=== PATIENT | female | born 1990 | race African-American/Black ===

== ENCOUNTER 2017-03-29 03:54 | Emergency (ER) | payer SELFPAY ==
[2017-03-29 06:17] LABS: ALANINE AMINOTRANSFERASE 22 U/L (9-52); ALBUMIN 4.3 g/dL (3.5-5.0); ALKALINE PHOSPHATASE 121 U/L (38-126); ANION GAP 13 (5-19); ASPARTATE AMINO TRANSFERASE 23 U/L (14-36); BILIRUBIN,DIRECT 0.2 mg/dL (0.0-0.4); BILIRUBIN,TOTAL 0.2 mg/dL (0.2-1.3); BLOOD UREA NITROGEN 10 mg/dL (7-20); CALCIUM 10.2 mg/dL (8.4-10.2); CARBON DIOXIDE 27 mmol/L (22-30); CHLORIDE 99 mmol/L (98-107); CREATININE RESULT 0.62 mg/dL (0.52-1.25); GLUCOSE 270 mg/dL (75-110); POTASSIUM 4.8 mmol/L (3.6-5.0); SODIUM 139.3 mmol/L (137-145); TOTAL PROTEIN 8.1 g/dL (6.3-8.2)
[2017-03-29 06:23] LABS: ABSOLUTE BASOPHILS # (AUTO) 0.1 10^3/uL (0.0-0.2); ABSOLUTE EOSINOPHILS # (AUTO) 0.1 10^3/uL (0.0-0.6); ABSOLUTE MONOCYTES (AUTO) 0.5 10^3/uL (0.1-1.4); ABSOLUTE NEUT (AUTO) 4.8 10^3/uL (1.7-8.2); BASOPHILS % (AUTO) 0.7 % (0-2); EOSINOPHILS % (AUTO) 1.4 % (0-6); HEMATOCRIT 40.3 % (36.0-47.0); HEMOGLOBIN 13.4 g/dL (12.0-15.5); HGB HCT DIFFERENCE -0.1; LYMPHOCYTES % (AUTO) 34.8 % (13-45); MEAN CORPUSCULAR HGB CONC 33.1 g/dL (32.0-36.0); MEAN CORPUSCULAR VOLUME 88 fl (80-97); MONOCYTES % (AUTO) 6.3 % (3-13); RED BLOOD COUNT 4.61 10^6/uL (3.72-5.28); RED CELL DISTRIBUTION WIDTH 12.7 % (11.5-14.0); SEGMENTED NEUTROPHILS % (AUTO) 56.8 % (42-78); WHITE BLOOD COUNT 8.5 10^3/uL (4.0-10.5)
--- NOTE | 2017-03-29 07:27 | ER Document Report ---
ED GI Bleed / Rectal Pain - General Chief Complaint: Rectal Bleeding Stated Complaint: BLEEDING FROM RECTUM Time Seen by Provider: 03/29/17 07:26 Mode of Arrival: Ambulatory Information source: Patient Notes: 26-year-old obese female stated that she started having red blood with 5 bowel movements that she had after eating yesterday evening at 6:30 PM. She has a history of irritable bowel and she is not that concerned and it is normal to have that many bowel movements. She has no anal pain or abdominal pain. no History of hemorrhoids. Had -induced hyperglycemia was taking insulin but has not taken any medications for 1 year. She has no insurance and no doctor. She has been suspicious that her glucose is elevated because of how she feels. She did drink a lot of alcohol last night and eats a lot of noodles.. TRAVEL OUTSIDE OF THE [place] IN LAST 30 DAYS: No - Related Data Allergies/Adverse Reactions: No Known Allergies Allergy (Verified 08/07/15 00:23) Past Medical History - General Information source: Patient - Social History Smoking Status: Unknown if Ever Smoked Frequency of alcohol use: None Drug Abuse: None Lives with: Family Family History: Reviewed & Not Pertinent Patient has suicidal ideation: No Patient has homicidal ideation: No Renal/ Medical History: Reports: Hx Pelvic Inflammatory Disease - 16 years old GI Medical History: Reports: Hx Gastroesophageal Reflux Disease - WITH Past Surgical History: Reports: Hx Section, Hx Cholecystectomy - Immunizations Hx Diphtheria, Pertussis, Tetanus Vaccination: No Review of Systems - Review of Systems Constitutional: No symptoms reported EENT: No symptoms reported Cardiovascular: No symptoms reported Respiratory: No symptoms reported Gastrointestinal: See HPI Genitourinary: No symptoms reported Female Genitourinary: No symptoms reported Musculoskeletal: No symptoms reported Skin: No symptoms reported Hematologic/Lymphatic: No symptoms reported Neurological/Psychological: No symptoms reported Physical Exam - Vital signs Vitals: Temp Pulse Resp BP Pulse Ox 97.7 F 97 18 132/87 H 100 03/29/17 03:58 03/29/17 03:58 03/29/17 03:58 03/29/17 03:58 03/29/17 03:58 Interpretation: Normal - General General appearance: Appears well, Alert - HEENT Head: Normocephalic, Atraumatic Eyes: Normal Pupils: PERRL - Respiratory Respiratory status: No respiratory distress Chest status: Nontender Breath sounds: Normal Chest palpation: Normal - Cardiovascular Rhythm: Regular Heart sounds: Normal auscultation Murmur: No - Abdominal Inspection: Normal Distension: No distension Bowel sounds: Normal Tenderness: Nontender Organomegaly: No organomegaly - Rectal Tenderness: Yes Hemorrhoids: Internal Notes: bleeding from anal canal wiht visual exam and anal tissue - Back Back: Normal, Nontender - Extremities General upper extremity: Normal inspection, Nontender, Normal color, Normal ROM , Normal temperature General lower extremity: Normal inspection, Nontender, Normal color, Normal ROM , Normal temperature, Normal weight bearing. No: Barrington's sign - Neurological Neuro grossly intact: Yes Cognition: Normal Orientation: AAOx4 Dennise Coma Scale Eye Opening: Spontaneous Dennise Coma Scale Verbal: Oriented [place] Coma Scale Motor: Obeys Commands Dennise Coma Scale Total: 15 Speech: Normal Motor strength normal: LUE, RUE, LLE, RLE Sensory: Normal - Psychological Associated symptoms: Normal affect, Normal mood - Skin Skin Temperature: Warm Skin Moisture: Dry Skin Color: Normal Course - Re-evaluation Re-evalutation: 03/29/17 08:01 We discussed at length dietary changes to help her metabolize glucose and weight loss. We will start her on some metformin and have her follow-up care in community clinic. The Anusol HC to heal the bleeding anal tissue. Will refer to gastroenterology. Hbg. is normal platelets are 543. - Vital Signs Vital signs: Temp Pulse Resp BP Pulse Ox 97.7 F 93 16 129/82 H 100 03/29/17 08:49 03/29/17 08:49 03/29/17 08:49 03/29/17 08:49 03/29/17 08:49 - Laboratory Result Diagrams: 03/29/17 05:24 03/29/17 05:24 Laboratory results interpreted by me: 03/29/17 03/29/17 05:24 05:24 Plt Count 537 H Glucose 270 H Discharge - Discharge Clinical Impression: Anal bleeding, Hyperglycemia, Hemorrhoids Condition: Good Disposition: HOME, SELF-CARE Instructions: Glucophage ([facility]), Hemorrhoids ([facility]), Hyperglycemia ([facility]), Steroid Medication Additional Instructions: cut way down on carbohydrates, eat meat and vegetables instead, no sweet tea or soda see [facility] for follow up drink 2 liters of water daily to er if worse anusol with steroid suppository to heal the anal tissue that is bleeding Prescriptions: Hydrocortisone Acetate [Anusol-Hc] 25 mg RC BID #24 supp.rect Metformin HCl 500 mg PO BID #60 tablet
[2017-03-29 08:50] VITALS: BP 129/82
== END 2017-03-29 08:47 | disposition home or self-care (01) ==
LOC: ER 03:54
DX: K62.5 Hemorrhage of anus and rectum (principal); R73.9 Hyperglycemia, unspecified; K64.8 Other hemorrhoids
CPT/HCPCS: 36415; 80053; 84703; 85025; 99283

== ENCOUNTER 2017-09-03 16:47 | Emergency (ER) | payer SELFPAY ==
[2017-09-03] MEDS ORDERED: KETOROLAC TROMETHAMINE 60 MG/2 ML SDV IM ONE (17:15)
[2017-09-03] MEDS ORDERED: METOCLOPRAMIDE HCL 10 MG TABLET PO ONE (17:15)
[2017-09-03] MEDS ORDERED: NORMAL SALINE 1000 ML 1,000 ML IV ONE ×2 (18:06→18:57)
--- NOTE | 2017-09-03 18:06 | ER Document Report ---
ED General - General Chief Complaint: Abdominal Pain Stated Complaint: ABDOMINAL PAIN Time Seen by Provider: 09/03/17 17:12 Mode of Arrival: Ambulatory Information source: Patient Notes: 27-year-old female presents with complaints of right flank pain. Patient notes symptoms started a few days ago with urinary frequency burning on urination, patient notes she believes she had a UTI but did not treat for it. Patient notes now she is having nausea vomiting and when the pain hits she feels faint and has passed out TRAVEL OUTSIDE OF THE [place] IN LAST 30 DAYS: No - HPI Onset: Last week Onset/Duration: Persistent, Worse Quality of pain: Sharp Severity: Moderate Pain Level: 2 Associated symptoms: Nausea, Vomiting, Weakness, Other Exacerbated by: Denies Relieved by: Denies Similar symptoms previously: No Recently seen / treated by doctor: No - Related Data Allergies/Adverse Reactions: No Known Allergies Allergy (Verified 09/03/17 16:48) Past Medical History - Social History Smoking Status: Never Smoker Cigarette use (# per day): No Chew tobacco use (# tins/day): No Smoking Education Provided: No Frequency of alcohol use: None Drug Abuse: None Family History: Reviewed & Not Pertinent Patient has suicidal ideation: No Patient has homicidal ideation: No - Past Medical History Cardiac Medical History: Denies: Hx Hypertension, Hx Pulmonary Embolism, Hx Heart Murmur Pulmonary Medical History: Denies: Hx Asthma, Hx Sleep Apnea, Hx Tuberculosis Neurological Medical History: Denies: Hx Cerebrovascular Accident, Hx Seizures Endocrine Medical History: Denies: Hx Hyperthyroidism, Hx Hypothyroidism Renal/ Medical History: Reports: Hx Pelvic Inflammatory Disease - 16 years old. Denies: Hx Kidney Stones, Hx Ovarian Cysts, Hx Peritoneal Dialysis Malignancy Medical History: Denies: Hx Breast Cancer, Hx Cervical Cancer, Hx Ovarian Cancer GI Medical History: Reports: Hx Gastroesophageal Reflux Disease - WITH . Denies: Hx Hiatal Hernia, Hx Ulcer Musculoskeltal Medical History: Denies Hx Fibromyalgia Psychiatric Medical History: Denies: Hx Bipolar Disorder, Hx Depression, Hx Post Traumatic Stress Disorder , Hx Schizophrenia Traumatic Medical History: Denies: Hx Fractures Infectious Medical History: Denies: Hx HIV Past Surgical History: Reports: Hx Section, Hx Cholecystectomy - Immunizations Hx Diphtheria, Pertussis, Tetanus Vaccination: No Review of Systems - Review of Systems Notes: REVIEW OF SYSTEMS: CONSTITUTIONAL : Denies fever, chills, or sweats. Denies recent illness. EENT: Denies eye, ear, throat, or mouth pain or symptoms. Denies nasal or sinus congestion or discharge. Denies throat, tongue, or mouth swelling or difficulty swallowing. CARDIOVASCULAR: Denies chest pain. Denies palpitations or racing or irregular heart beat. Denies ankle edema. RESPIRATORY: Denies cough, cold, or chest congestion. Denies shortness of breath, difficulty breathing, or wheezing. GASTROINTESTINAL: Nausea vomiting right flank pain GENITOURINARY: Difficulty urinating FEMALE GENITOURINARY: Denies vaginal bleeding, heavy or abnormal periods, irregular periods. Denies vaginal discharge or odor. MUSCULOSKELETAL: Denies back or neck pain or stiffness. Denies joint pain or swelling. SKIN: Denies rash, lesions or sores. HEMATOLOGIC : Denies easy bruising or bleeding. LYMPHATIC: Denies swollen, enlarged glands. NEUROLOGICAL: Syncope PSYCHIATRIC: Denies anxiety or stress. Denies depression, suicidal ideation, or homicidal ideation. ALL OTHER SYSTEMS REVIEWED AND NEGATIVE. PHYSICAL EXAMINATION: GENERAL: Well-appearing, well-nourished and in no acute distress. HEAD: Atraumatic, normocephalic. EYES: Pupils equal round and reactive to light, extraocular movements intact, conjunctiva are normal. ENT: Nares patent, oropharynx clear without exudates. Moist mucous membranes. NECK: Normal range of motion, supple without lymphadenopathy LUNGS: Breath sounds clear to auscultation bilaterally and equal. No wheezes rales or rhonchi. HEART: Initially noted to be tachycardic regular rate and rhythm without murmurs ABDOMEN: Soft, right CVA tenderness mild suprapubic pressure Female : deferred Musculoskeletal: Normal range of motion, no pitting or edema. No cyanosis. NEUROLOGICAL: Cranial nerves grossly intact. Normal speech, normal gait. Normal sensory, motor exams PSYCH: Normal mood, normal affect. SKIN: Warm, Dry, normal turgor, no rashes or lesions noted. Dictation was performed using [employer] voice recognition software Physical Exam - Vital signs Vitals: Temp Pulse Resp BP Pulse Ox 99.4 F 113 H 20 162/94 H 97 09/03/17 16:51 09/03/17 16:51 09/03/17 16:51 09/03/17 16:51 09/03/17 16:51 Course - Re-evaluation Re-evalutation: 09/03/17 18:05 Lab work urinalysis pending probable pyelonephritis 09/03/17 18:42 Patient does have pyelonephritis, initially she refused IV, but we were able to convince her 09/03/17 19:26 Lab work notes no significant abnormality except for hyperglycemia, patient she did eat chips in the emergency department, she will be given IV fluids will be given dose of antibiotics here urine culture pending large amount of protein is seen in the urine strict return precautions have been discussed with her After performing a Medical Screening Examination, I estimate there is LOW risk for ACUTE APPENDICITIS, BOWEL OBSTRUCTION, ACUTE CHOLECYSTITIS, PERFORATED DIVERTICULITIS, INCARCERATED HERNIA, PANCREATITIS, PELVIC INFLAMMATORY DISEASE, PERFORATED ULCER, ECTOPIC , or TUBO-OVARIAN ABSCESS, thus I consider the discharge disposition reasonable. Also, there is no evidence or peritonitis , sepsis, or toxicity. I have reevaluated this patient multiple times and no significant life threatening changes are noted. The patient and I have discussed the diagnosis and risks, and we agree with discharging home with close follow-up with the understanding that symptoms and presentations can change. We also discussed returning to the Emergency Department immediately if new or worsening symptoms occur. We have discussed the symptoms which are most concerning (e.g., bloody stool, fever, changing or worsening pain, vomiting) that necessitate immediate return. - Vital Signs Vital signs: Temp Pulse Resp BP Pulse Ox 99.4 F 113 H 20 162/94 H 97 09/03/17 16:51 09/03/17 16:51 09/03/17 16:51 09/03/17 16:51 09/03/17 16:51 - Laboratory Result Diagrams: 09/03/17 18:00 09/03/17 18:00 Laboratory results interpreted by me: 09/03/17 09/03/17 09/03/17 18:00 18:00 18:00 WBC 14.2 H Absolute Neutrophils 10.1 H Sodium 136.3 L Chloride 95 L Glucose 321 H POC Glucose Calcium 11.1 H Direct Bilirubin 0.5 H Total Protein 8.8 H Urine Protein >=500 H Urine Glucose (UA) >=500 H Urine Ketones TRACE H Urine Blood MODERATE H Ur Leukocyte Esterase LARGE H 09/03/17 18:50 WBC Absolute Neutrophils Sodium Chloride Glucose POC Glucose 377 H Calcium Direct Bilirubin Total Protein Urine Protein Urine Glucose (UA) Urine Ketones Urine Blood Ur Leukocyte Esterase Discharge - Discharge Clinical Impression: Hyperglycemia, Pyelonephritis Condition: Stable Disposition: HOME, SELF-CARE Instructions: Pyelonephritis ([facility]) Additional Instructions: Follow up with your physician tomorrow for further care or return to the ED IMMEDIATELY if symptoms worsen or new concerns occur. If you cannot afford to follow up with your primary care physician a list of low cost clinics have been provided at the end of your discharge papers as well. Prescriptions: Ciprofloxacin HCl [Cipro 500 mg Tablet] 500 mg PO BID #20 tablet Hydrocodone/Acetaminophen [[place] 5-325 mg Tablet] 1 tab PO Q6 #10 tablet Metoclopramide HCl [Reglan 10 mg Tablet] 1 - 2 tab PO Q6 #25 tablet
[2017-09-03 18:32] LABS: ABSOLUTE BASOPHILS # (AUTO) 0.2 10^3/uL (0.0-0.2); ABSOLUTE LYMPHOCYTES (AUTO) 3.2 10^3/uL (0.5-4.7); ABSOLUTE MONOCYTES (AUTO) 0.7 10^3/uL (0.1-1.4); ABSOLUTE NEUT (AUTO) 10.1 10^3/uL (1.7-8.2); BASOPHILS % (AUTO) 1.2 % (0-2); EOSINOPHILS % (AUTO) 0.3 % (0-6); HEMATOCRIT 44.1 % (36.0-47.0); HEMOGLOBIN 14.7 g/dL (12.0-15.5); LYMPHOCYTES % (AUTO) 22.3 % (13-45); MEAN CORPUSCULAR HEMOGLOBIN 29.1 pg (27.0-33.4); MEAN CORPUSCULAR HGB CONC 33.4 g/dL (32.0-36.0); MEAN CORPUSCULAR VOLUME 87 fl (80-97); MONOCYTES % (AUTO) 5.2 % (3-13); PLATELET COUNT 450 10^3/uL (150-450); RED BLOOD COUNT 5.06 10^6/uL (3.72-5.28); RED CELL DISTRIBUTION WIDTH 13.2 % (11.5-14.0); TOTAL CELLS COUNTED % (AUTO) 100 %; WHITE BLOOD COUNT 14.2 10^3/uL (4.0-10.5)
[2017-09-03 18:39] LABS: ALBUMIN 4.7 g/dL (3.5-5.0); ANION GAP 17 (5-19); BILIRUBIN,DIRECT 0.5 mg/dL (0.0-0.4); BILIRUBIN,TOTAL 0.7 mg/dL (0.2-1.3); BLOOD UREA NITROGEN 7 mg/dL (7-20); CALCIUM 11.1 mg/dL (8.4-10.2); CARBON DIOXIDE 24 mmol/L (22-30); CHLORIDE 95 mmol/L (98-107); GLUCOSE 321 mg/dL (75-110); LIPASE 79.8 U/L (23-300); SODIUM 136.3 mmol/L (137-145); TOTAL PROTEIN 8.8 g/dL (6.3-8.2)
[2017-09-03 18:40] LABS: APPEARANCE,URINE CLOUDY; BILIRUBIN,URINE NEGATIVE (NEGATIVE); COLOR,URINE YELLOW; GLUCOSE, URINE >=500 mg/dL (NEGATIVE); KETONES,URINE TRACE mg/dL (NEGATIVE); LEUKOCYTE ESTERASE,URINE LARGE (NEGATIVE); NITRITE,URINE NEGATIVE (NEGATIVE); PROTEIN,URINE >=500 mg/dL (NEGATIVE); URINE SPECIFIC GRAVITY 1.012; UROBILINOGEN,URINE NEGATIVE mg/dL (<2.0)
[2017-09-03] MEDS ORDERED: CIPROFLOXACIN HCL 500 MG TABLET PO ONE (18:43)
[2017-09-03 19:09] LABS: ASPARTATE AMINO TRANSFERASE 33 U/L (14-36)
[2017-09-03 19:10] LABS: ALANINE AMINOTRANSFERASE 13 U/L (9-52); ALKALINE PHOSPHATASE 111 U/L (38-126)
[2017-09-03 19:59] VITALS: BP 131/86
== END 2017-09-03 19:59 | disposition home or self-care (01) ==
LOC: ER 16:47
DX: N12 Tubulo-interstitial nephritis, not specified as acute or chronic (principal); R73.9 Hyperglycemia, unspecified; R11.2 Nausea with vomiting, unspecified; R55 Syncope and collapse; R53.1 Weakness
CPT/HCPCS: 99284; 96372; 96360; 36415; 82962; 83690; 85025; 81025; 80053; 81001; J1885; J7030

== ENCOUNTER 2017-11-08 09:53 | Emergency (ER) | payer SELFPAY ==
--- NOTE | 2017-11-08 14:16 | ER Document Report ---
ED Flu Like - General Chief Complaint: Flu Symptoms Stated Complaint: FLU SYMPTOMS Time Seen by Provider: 11/08/17 13:45 Mode of Arrival: Ambulatory Information source: Patient Notes: 27-year-old female presents to ED for complaint of fever chills cough body aches for the past 3 days. 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 She states she has been taken Robitussin yesterday and today. She states she does not have a thermometer at home and has not taken her temperature today. Patient is alert and oriented respirations regular and unlabored speaking in full sentences and walks with a even steady gait. He is afebrile in the emergency room. TRAVEL OUTSIDE OF THE [place] IN LAST 30 DAYS: No - HPI Onset: Other - 3 days Timing/Duration: Intermittent Quality of pain: Achy Severity: Moderate Pain Level: 3 CO exposure: No Associated symptoms: Body/muscle aches, Chills, Nonproductive cough, Fever, Rhinnorhea, Sinus pain/drainage, Shortness of breath Similar symptoms previously: Yes Recently seen / treated by doctor: No - Related Data Allergies/Adverse Reactions: No Known Allergies Allergy (Verified 09/03/17 16:48) Past Medical History - General Information source: Patient - Social History Smoking Status: Never Smoker Cigarette use (# per day): No Chew tobacco use (# tins/day): No Smoking Education Provided: No Frequency of alcohol use: None Drug Abuse: None Occupation: long term Lives with: Family Family History: Reviewed & Not Pertinent Patient has suicidal ideation: No Patient has homicidal ideation: No - Past Medical History Cardiac Medical History: Reports: None Pulmonary Medical History: Reports: None EENT Medical History: Reports: None Neurological Medical History: Reports: None Endocrine Medical History: Reports: Hx Diabetes Mellitus Type 2 Renal/ Medical History: Reports: Hx Pelvic Inflammatory Disease - 16 years old Malignancy Medical History: Reports: None GI Medical History: Reports: Hx Gastroesophageal Reflux Disease - WITH Musculoskeletal Medical History: Reports Hx Musculoskeletal Trauma Skin Medical History: Reports None Psychiatric Medical History: Reports: None Traumatic Medical History: Reports: None Infectious Medical History: Reports: None. Denies: Hx HIV Past Surgical History: Reports: Hx Section, Hx Cholecystectomy - Immunizations Hx Diphtheria, Pertussis, Tetanus Vaccination: No Review of Systems - Review of Systems Constitutional: Chills, Fever, Recent illness EENT: Nose congestion, Nose discharge, Sinus discharge Cardiovascular: No symptoms reported Respiratory: Cough Gastrointestinal: No symptoms reported Genitourinary: No symptoms reported Female Genitourinary: No symptoms reported Musculoskeletal: Muscle pain, Muscle stiffness Skin: No symptoms reported Hematologic/Lymphatic: No symptoms reported Neurological/Psychological: No symptoms reported -: Yes All other systems reviewed and negative Physical Exam - Vital signs Vitals: Temp Pulse Resp BP Pulse Ox 98.7 F 113 H 14 134/83 H 99 11/08/17 10:23 11/08/17 10:23 11/08/17 10:23 11/08/17 10:23 11/08/17 10:23 Interpretation: Normal - General General appearance: Appears well, Alert - HEENT Head: Normocephalic, Atraumatic Eyes: Normal Pupils: PERRL Ears: Normal External canal: Normal Tympanic membrane: Normal Sinus: Normal Nasal: Purulent discharge, Swelling Mouth/Lips: Normal Mucous membranes: Normal Pharynx: Post nasal drainage Neck: Normal - Respiratory Respiratory status: No respiratory distress Chest status: Nontender Breath sounds: Normal Chest palpation: Normal - Cardiovascular Rhythm: Regular Heart sounds: Normal auscultation Murmur: No - Abdominal Inspection: Normal Distension: No distension Bowel sounds: Normal Tenderness: Nontender Organomegaly: No organomegaly - Back Back: Normal, Nontender - Extremities General upper extremity: Normal inspection, Nontender, Normal color, Normal ROM , Normal temperature General lower extremity: Normal inspection, Nontender, Normal color, Normal ROM , Normal temperature, Normal weight bearing. No: Barrington's sign - Neurological Neuro grossly intact: Yes Cognition: Normal Orientation: AAOx4 [place] Coma Scale Eye Opening: Spontaneous Dennise Coma Scale Verbal: Oriented Dennise Coma Scale Motor: Obeys Commands Romance Coma Scale Total: 15 Speech: Normal Motor strength normal: LUE, RUE, LLE, RLE Sensory: Normal - Psychological Associated symptoms: Normal affect, Normal mood - Skin Skin Temperature: Warm Skin Moisture: Dry Skin Color: Normal Course - Re-evaluation Re-evalutation: 11/08/17 15:58 She was educated on Tylenol ibuprofen and cold congestion symptoms relief. Patient to follow-up with her primary doctor for her cough and cold symptoms. After performing a Medical Screening Examination, I estimate there is LOW risk for ACUTE CORONARY SYNDROME, RESPIRATORY FAILURE, SEPSIS OR MENINGITIS, thus I consider the discharge disposition reasonable. I have reevaluated this patient multiple times and no significant life threatening changes are noted. The patient and I have discussed the diagnosis and risks, and we agree with discharging home with close follow-up. We also discussed returning to the Emergency Department immediately if new or worsening symptoms occur. We have discussed the symptoms which are most concerning (e.g., changing or worsening pain, trouble swallowing or breathing, neck stiffness, fever) that necessitate immediate return. - Vital Signs Vital signs: Temp Pulse Resp BP Pulse Ox 98.1 F 112 H 18 143/87 H 100 11/08/17 14:25 11/08/17 14:25 11/08/17 14:25 11/08/17 14:25 11/08/17 14:25 Discharge - Discharge Clinical Impression: URI (upper respiratory infection) Qualifiers: URI type: unspecified URI Qualified Code(s): J06.9 - Acute upper respiratory infection, unspecified Condition: Stable Disposition: HOME, SELF-CARE Instructions: Family Physicians / Practices Additional Instructions: UPPER RESPIRATORY ILLNESS: You have a viral infection of the respiratory passages -- a "cold." This common infection causes nasal congestion, drainage, and often sore throat and cough. It is highly contagious. The disease usually lasts about 10 to 14 days. There is no "cure" for the viral infection -- it must run its course. If there is a complication, such as bacterial infection in the nose, sinuses, middle ear, or bronchial tubes, antibiotics may be required. The antibiotics won't affect the virus. Drink plenty of fluids. A humidifier may help. An expectorant medication or decongestant may make you more comfortable. Use acetaminophen or ibuprofen for fever or aches. See the doctor if fever persists over two days, if there is any significant worsening of your symptoms, or if you simply fail to improve as expected. DECONGESTANT MEDICATION: A decongestant medicine has been prescribed. Often this medicine is combined in the same tablet with an antihistamine or expectorant. This type of medicine is helpful in treating a bad cold or sinus condition, as well as in treatment of the nasal congestion of hay fever. It is not of much benefit for lung infections. Decongestant medicines are related to stimulants. They can cause an increase in blood pressure and heart rate. Persons with heart disease and high blood pressure should not take decongestants without discussing this with the physician. If you develop palpitations, chest pain, headache, or tremors, stop the medicine and consult your physician. COUGH-SUPPRESSANT & EXPECTORANT MEDICATION: You are to use a cough medication as needed for relief of symptoms. This medicine is a combination of an expectorant (to make the mucous thinner and more easily "coughed up") and a cough suppressant (to reduce the frequency of coughing). The cough-suppressant medicine is related to narcotics. You may experience mild nausea and sleepiness. Some patients who are very sensitive to narcotics may have stomach pain from this medicine. Taking the medicine with food reduces these side effects. Do not drive or work with machinery until you know how this medicine affects you. The expectorant should have no side effects. Iodine-containing expectorants (such as organidin) should not be taken by persons with active thyroid disease unless approved by your doctor. Call the doctor if you develop shortness of breath, hives, rash, itching, lightheadedness, or severe nausea and vomiting. USE OF ACETAMINOPHEN (Tylenol): Acetaminophen may be taken for pain relief or fever control. It's much safer than aspirin, offering a wider range of "safe" dosages. It is safe during . Some brand names are Tylenol, Panadol, Datril, Anacin 3, Tempra, and Liquiprin. Acetaminophen can be repeated every four hours. The following are maximum recommended dosages: >89 pounds or adults 650 mg to 900 mg Acetaminophen can be repeated every four hours. Maximum dose not to exceed 4000 mg a day. Viral Syndrome The physician has diagnosed a viral infection. Viruses not only cause "colds," but can cause many different symptoms including generalized aching, fever, headache, cough, diarrhea, nausea, vomiting, and fatigue. The treatment, for the most part, is simply relief of symptoms. This means that antibiotics are usually not given. Rest, fluids, pain medications and, occasionally, medication for the specific symptoms that are most bothersome will be prescribed. Use good handwashing to avoid passing the virus to others. Shared toys should be cleaned with disinfectant. Clean the toilets, sinks, and counter surfaces in bathrooms. Launder clothing in hot water. Contact the physician if you develop any new or unusual symptoms such as severe headache, stiff neck, high fever, chest pain, productive cough, or shortness of breath. You should be rechecked if you don't see marked improvement within seven to 10 days. Ibuprofen Ibuprofen is an excellent, safe drug for pain control. In addition, it has potent antiinflammatory effects which are beneficial, especially in the treatment of injuries, arthritis, or tendonitis. It's best to take ibuprofen with food. Persons with ulcer disease or allergy to aspirin should notify their physician of this before taking ibuprofen. Take the medication exactly as prescribed. Don't take additional doses unless instructed to do so by your doctor. If you develop wheezing, shortness of breath, hives, faintness, stomach pain, vomiting, or dark black stools, return for re-evaluation at once. FOLLOW-UP CARE: If you have been referred to a physician for follow-up care, call the physician s office for an appointment as you were instructed or within the next two days. If you experience worsening or a significant change in your symptoms, notify the physician immediately or return to the Emergency Department at any time for re-evaluation. Forms: Return to Work
[2017-11-08 14:40] VITALS: BP 143/87
== END 2017-11-08 14:30 | disposition home or self-care (01) ==
LOC: ER 09:53
DX: J06.9 Acute upper respiratory infection, unspecified (principal); R50.9 Fever, unspecified; R05 Cough; M79.1 Myalgia; J34.89 Other specified disorders of nose and nasal sinuses; R09.81 Nasal congestion; R09.89 Other specified symptoms and signs involving the circulatory and respiratory systems; R06.02 Shortness of breath; E11.9 Type 2 diabetes mellitus without complications
CPT/HCPCS: 99283

== ENCOUNTER 2019-08-11 18:41 | Emergency (ER) | payer SELFPAY ==
[2019-08-11 19:34] VITALS: BP 137/81
[2019-08-11] MEDS ORDERED: ASPIRIN 81 MG TABLET, CHEWABLE PO ONE (20:48)
[2019-08-11] MEDS ORDERED: ONDANSETRON HCL INJ/PF 4 MG/2 ML SDV IV ONE (20:48)
--- NOTE | 2019-08-11 20:50 | ER Document Report ---
ED General - General Chief Complaint: Shortness Of Breath Stated Complaint: SHORTNESS OF BREATH Time Seen by Provider: 08/11/19 20:45 Mode of Arrival: Ambulatory Information source: Patient Notes: Patient presents complaining of chest tightness and generalized body aches since 8 AM today. Patient states that when she moves or takes a deep breath she has chest and body pain. Patient denies any cough or cold symptoms. Patient denies any fever. Patient does report nausea without vomiting or diarrhea. Patient states she has had some urinary frequency and dysuria. TRAVEL OUTSIDE OF THE [place] IN LAST 30 DAYS: No - HPI Onset: This morning Onset/Duration: Persistent Quality of pain: Achy Pain Level: 3 Associated symptoms: Body/muscle aches, Chest pain, Nausea. 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 Denies: Hx Kidney Stones, Hx Peritoneal Dialysis GI Medical History: Reports: Hx Gastroesophageal Reflux Disease - WITH . Denies: Hx Hiatal Hernia, Hx Ulcer Musculoskeletal Medical History: Reports Hx Musculoskeletal Trauma Psychiatric Medical History: Denies: Hx Bipolar Disorder, Hx Depression, Hx Schizophrenia Infectious Medical History: Denies: Hx HIV Past Surgical History: Reports: Hx Section, Hx Cholecystectomy - Immunizations Hx Diphtheria, Pertussis, Tetanus Vaccination: No Review of Systems - Review of Systems Constitutional: No symptoms reported. denies: Fever EENT: No symptoms reported Cardiovascular: Chest pain Respiratory: No symptoms reported. denies: Cough, Short of breath Gastrointestinal: Abdominal pain, Nausea. denies: Diarrhea, Vomiting Genitourinary: Dysuria, Frequency. denies: Flank pain Female Genitourinary: No symptoms reported Musculoskeletal: No symptoms reported Skin: No symptoms reported Hematologic/Lymphatic: No symptoms reported Neurological/Psychological: No symptoms reported Physical Exam - Vital signs Vitals: Temp 99 F 08/11/19 18:42 - General General appearance: Appears well, Alert In distress: None - HEENT Head: Normocephalic, Atraumatic Eyes: Normal Conjunctiva: Normal Nasal: Normal Mouth/Lips: Normal Neck: Normal, Supple. No: Lymphadenopathy - Respiratory Respiratory status: No respiratory distress Chest status: Tender, Pain with deep breathing Breath sounds: Normal Chest palpation: Tender. No: Ecchymosis - Cardiovascular Rhythm: Regular Heart sounds: S1 appreciated, S2 appreciated Murmur: No - Abdominal Inspection: Morbidly Obese Distension: No distension Bowel sounds: Normal Tenderness: Nontender Organomegaly: No organomegaly - Back Back: Normal, Nontender - Extremities General upper extremity: Normal inspection, Normal ROM General lower extremity: Normal inspection, Normal ROM - Neurological Neuro grossly intact: Yes Cognition: Normal Dennise Coma Scale Eye Opening: Spontaneous Dennise Coma Scale Verbal: Oriented Dennise Coma Scale Motor: Obeys Commands Dennise Coma Scale Total: 15 - Psychological Associated symptoms: Normal affect, Normal mood - Skin Skin Temperature: Warm Skin Moisture: Dry Skin Color: Normal Course - Re-evaluation Re-evalutation: 08/11/19 21:45 Patient states that she has to go home to stay with her children as they are there by themselves. Patient states that she cannot stay to have any additional testing performed. Patient advised of urinalysis results and chest x-ray report. The patient has decided not to proceed with further recommended testing or treatment to determine the cause of her symptoms. The risk and alternatives to the recommendation were discussed the patient voiced understanding. The patient appears clinically to have the capacity to make this decision. The patient was instructed that they could return to the ER at any time to complete the testing or treatment. - Vital Signs Vital signs: Temp Pulse Resp BP Pulse Ox 99 F 111 H 19 137/81 H 100 08/11/19 19:33 08/11/19 19:33 08/11/19 19:33 08/11/19 19:33 08/11/19 19:33 - Laboratory Laboratory results interpreted by me: 08/11/19 21:02 Urine Glucose (UA) >=500 H Urine Ketones TRACE H Ur Leukocyte Esterase LARGE H - Diagnostic Test Radiology reviewed: Reports reviewed Discharge - Discharge Clinical Impression: Body aches Chest pain Qualifiers: Chest pain type: unspecified Qualified Code(s): R07.9 - Chest pain, unspecified UTI (urinary tract infection) Qualifiers: Urinary tract infection type: site unspecified Hematuria presence: without hematuria Qualified Code(s): N39.0 - Urinary tract infection, site not specified Disposition: AGAINST MEDICAL ADVICE Additional Instructions: Return immediately if you would like to continue your diagnostic evaluation. Return for any worsening of symptoms, fever, vomiting, or any new concerning symptoms Follow-up with your primary doctor for recheck Prescriptions: Cephalexin Monohydrate [Keflex 500 mg Capsule] 500 mg PO Q6H 7 Days #28 capsule Forms: Return to Work
[2019-08-11 21:17] LABS: APPEARANCE,URINE SLIGHTLY-CLOUDY; BILIRUBIN,URINE NEGATIVE (NEGATIVE); COLOR,URINE YELLOW; GLUCOSE, URINE >=500 mg/dL (NEGATIVE); KETONES,URINE TRACE mg/dL (NEGATIVE); LEUKOCYTE ESTERASE,URINE LARGE (NEGATIVE); NITRITE,URINE NEGATIVE (NEGATIVE); PROTEIN,URINE NEGATIVE (NEGATIVE); URINE SPECIFIC GRAVITY 1.021; UROBILINOGEN,URINE NEGATIVE mg/dL (<2.0)
--- NOTE | 2019-08-11 21:21 | RADIOLOGY REPORT (SQ) ---
EXAM DESCRIPTION: XR CHEST 1 VIEW COMPLETED DATE/TME: 08/11/2019 20:48 CLINICAL HISTORY: 29 years, Female, cp COMPARISON: None. NUMBER OF VIEWS: One TECHNIQUE: Single frontal view of the chest was obtained portably LIMITATIONS: None. FINDINGS: Cardiac and mediastinal contours are normal. Lungs are clear. No pleural effusion or pneumothorax. IMPRESSION: No acute disease. copyright 2010 [employer]- All Rights Reserved
--- NOTE | 2019-08-11 21:32 | EKG REPORT ---
SEVERITY:- ABNORMAL ECG - SINUS RHYTHM PROBABLE LEFT ATRIAL ABNORMALITY PROBABLE LEFT VENTRICULAR HYPERTROPHY : Confirmed by: Nikunj Moeller MD 11-Aug-2019 21:31:58
[2019-08-11] MEDS ORDERED: CEPHALEXIN 500 MG CAPSULE PO ONE (21:45)
== END 2019-08-11 22:20 | disposition left against medical advice (07) ==
LOC: ER 18:41
DX: R07.89 Other chest pain (principal); R07.1 Chest pain on breathing; N39.0 Urinary tract infection, site not specified; M79.10 Myalgia, unspecified site; R35.0 Frequency of micturition; R30.0 Dysuria; R11.0 Nausea; R10.9 Unspecified abdominal pain; F17.200 Nicotine dependence, unspecified, uncomplicated; E11.9 Type 2 diabetes mellitus without complications; Z53.29 Procedure and treatment not carried out because of patient's decision for other reasons
CPT/HCPCS: 71045; 81001; 87086; 87088; 87186; 93005; 93010; 99284

== ENCOUNTER 2019-08-29 07:33 | Emergency (ER) | payer SELFPAY ==
--- NOTE | 2019-08-29 08:24 | ER Document Report ---
ED General - General Chief Complaint: Pain With Urination Stated Complaint: URINARY PAIN Time Seen by Provider: 08/29/19 08:01 Notes: 29-year-old female presenting today for continued suprapubic pain and dysuria. She is seen about 2 weeks ago and prescribed an antibiotic but was eventually told not to take it due to the results of her urine culture she states that she was diagnosed with MRSA she was prescribed another antibiotic. States that her dysuria and suprapubic pain did improve slightly but she continues to have the pain. Reports no hematuria, but she does report white clumpy vaginal discharge and itching. She has tried monistat for the yeast concern. She also notes that she has a rash under her stomach that is worsening and spread across her entire lower abdomen and also underneath her breasts in which she has been using an otc cream called Endit!. Reports headache. No fevers, chills, shortness of breath, chest pain, or upper abdominal pain. No CVA tenderness. Last menstrual period was 1 week ago. TRAVEL OUTSIDE OF THE [place] IN LAST 30 DAYS: No - Related Data Allergies/Adverse Reactions: No Known Allergies Allergy (Verified 09/03/17 16:48) Past Medical History - Social History Smoking Status: Former Smoker Frequency of alcohol use: None Family History: Reviewed & Not Pertinent - Past Medical History Cardiac Medical History: Reports: None Denies: Hx Hypertension Pulmonary Medical History: Reports: None Denies: Hx Asthma, Hx Tuberculosis EENT Medical History: Reports: None Neurological Medical History: Denies: Hx Seizures Endocrine Medical History: Reports: Hx Diabetes Mellitus Type 2 Renal/ Medical History: Reports: Hx Pelvic Inflammatory Disease - 16 years old. Denies: Hx Kidney Stones, Hx Peritoneal Dialysis GI Medical History: Reports: Hx Gastroesophageal Reflux Disease - WITH , Other - gallstones. Denies: Hx Hiatal Hernia, Hx Ulcer Musculoskeletal Medical History: Reports Hx Musculoskeletal Trauma Psychiatric Medical History: Denies: Hx Bipolar Disorder, Hx Depression, Hx Schizophrenia Infectious Medical History: Denies: Hx HIV Past Surgical History: Reports: Hx Section, Hx Cholecystectomy, Hx Tubal Ligation - Immunizations Hx Diphtheria, Pertussis, Tetanus Vaccination: No Review of Systems - Review of Systems Constitutional: No symptoms reported EENT: No symptoms reported Cardiovascular: No symptoms reported Respiratory: No symptoms reported Gastrointestinal: See HPI Genitourinary: See HPI Female Genitourinary: See HPI Musculoskeletal: Other - low back pain Skin: See HPI Hematologic/Lymphatic: No symptoms reported Physical Exam - Vital signs Vitals: Temp Pulse Resp BP Pulse Ox 98.3 F 97 18 141/83 H 99 08/29/19 07:39 08/29/19 07:39 08/29/19 07:39 08/29/19 07:39 08/29/19 07:39 Interpretation: Hypertensive - Notes Notes: Adult General: GENERAL: Alert, interacts well. No acute distress HEAD: Normocephalic, atraumatic EYES: Pupils equal, round and reactive to light. Extraocular movements intact. ENT: Oral mucosa moist, tongue midline. Oropharynx unremarkable. Airway patent. Nares patent. NECK: Full range of motion. Supple. Trachea midline. No lymphadenopathy. LUNGS: Clear to auscultation bilaterally, no wheezes, rales, or rhonchi. No respiratory distress. Nontender chest wall. HEART: Regular rate and rhythm. No murmurs, rubs or gallops. ABDOMEN: Soft, nontender. Nondistended. Bowel sounds present in all 4 quadrants. GENITOURINARY: White discharge, no cervical motion tenderness. EXTREMITIES: Moves all 4 extremities spontaneously. BACK: No cervical, thoracic, lumbar midline tenderness. Moves all extremities with full range of motion. NEUROLOGICAL: Alert and oriented x3. Normal speech. Strength 5/ 5 in all extremities. PSYCH: Normal affect, normal mood. SKIN: Warm, dry, normal turgor. discoloration under pannus extending entire length of abdomen, with whitish discharge and odor, same rash under breast Course - Re-evaluation Re-evalutation: 08/29/19 10:27 Pelvic exam was performed for patient. July RN chaperoned. Physical exam showed white, chunky discharge. No vesicles or rashes or lesions noted. No cervical motion tenderness. Did note some discomfort but no pain. Does tell me at this time that she has a history of herpes. He has had intercourse with an uncircumcised partner recently. When she initially noticed the symptoms of the vaginal discharge she tried Monistat but that did not alleviate symptoms. 08/29/19 20:30 Wet mount showed signs of bacterial vaginosis. Will treat patient for this. 08/29/19 20:31 Patient continues to have suprapubic pain and pain with urination. Previous urinalysis showed MRSA. Urinalysis shows continued leuko-cyte esterase on repeat examination. We will go ahead and continue to treat for UTI. Bactrim showed improvement in her symptoms initially, will restart patient on Bactrim for an extended period of time. Wet mount also showed signs of bacterial vaginosis. Patient with Flagyl. Both of these can be contributing to her alvares prapubic pain. Patients rash is also consistent with a fungal etiology. Will prescribe patient nystatin. Instructed patient to keep the area clean and dry. The urinalysis was cultured. The skin lesion was also cultured. Patient should be notified of results when they do return. Patient instructed to take medication as prescribed. Return precautions to the ER include worsening symptoms, or development of new symptoms. Patient is in agreement to the plan and verbalizes understanding of instructions. - Vital Signs Vital signs: Temp Pulse Resp BP Pulse Ox 98.3 F 94 18 133/89 H 99 08/29/19 11:37 08/29/19 11:37 08/29/19 11:37 08/29/19 11:37 08/29/19 11:37 - Laboratory Laboratory results interpreted by me: 08/29/19 08:25 Ur Leukocyte Esterase LARGE H Discharge - Discharge Clinical Impression: Urinary tract bacterial infections, Bacterial vaginosis, Candidiasis Condition: Stable Disposition: HOME, SELF-CARE Instructions: Metronidazole ([facility]), Nystatin ([facility]), Trimethoprim-Sulfa ([facility]), Urinary Tract Infection ([facility]), Vaginosis, Bacterial ([facility]) Additional Instructions: you are being treated for UTI symptoms, bacterial vaginitis, and a fungal skin infection. Recommend follow-up with a PCM as soon as possible. You may return to the ED if you develop worsening symptoms or development of new symptoms. Please take medications as prescribed. Please keep skin clean and dry. We are still pending results of the skin culture. You should hear back in approximately 3 days of these results and any new or additional instructions if needed. Prescriptions: Sulfamethoxazole/Trimethoprim [Bactrim Ds Tablet] 1 each PO BID #20 tablet Metronidazole [Flagyl 500 mg Tablet] 500 mg PO BID #14 tablet Nystatin [Mycostatin Ointment 15 gm] 1 applic TP BID #1 tube Phenazopyridine HCl [Pyridium 200 mg Tablet] 200 mg PO TID #15 tablet Forms: Return to Work
[2019-08-29 08:47] LABS: APPEARANCE,URINE CLOUDY; BILIRUBIN,URINE NEGATIVE (NEGATIVE); COLOR,URINE YELLOW; GLUCOSE, URINE NEGATIVE (NEGATIVE); KETONES,URINE NEGATIVE (NEGATIVE); LEUKOCYTE ESTERASE,URINE LARGE (NEGATIVE); NITRITE,URINE NEGATIVE (NEGATIVE); PROTEIN,URINE NEGATIVE (NEGATIVE); URINE SPECIFIC GRAVITY 1.018; UROBILINOGEN,URINE NEGATIVE mg/dL (<2.0)
[2019-08-29 10:36] LABS: BACTERIA (WET MOUNT) 4+ BACTERIA SEEN; EPITHELIALS (WET MOUNT) 3+ EPITHELIALS SEEN; T.VAGINALIS (WET MOUNT) NO TRICHOMONAS SEEN; WBCS (WET MOUNT) 2+ WBCS SEEN; YEAST (WET MOUNT) NO YEAST SEEN
[2019-08-29 11:38] VITALS: BP 133/89
[2019-08-29 12:00] LABS: CHLAM PCR NOT DETECTED (NOT DETECT)
== END 2019-08-29 11:43 | disposition home or self-care (01) ==
LOC: ER 07:33
DX: N76.0 Acute vaginitis (principal); N39.0 Urinary tract infection, site not specified; B96.89 Other specified bacterial agents as the cause of diseases classified elsewhere; R51 Headache; B37.2 Candidiasis of skin and nail; M54.5 Low back pain; E11.9 Type 2 diabetes mellitus without complications; Z87.891 Personal history of nicotine dependence
CPT/HCPCS: 81001; 81025; 87070; 87075; 87086; 87088; 87101; 87186; 87205; 87210; 87491; 87591; 99283

== ENCOUNTER 2019-11-04 07:58 | Emergency (ER) | payer SELFPAY ==
--- NOTE | 2019-11-04 09:21 | ER Document Report ---
ED General - General Chief Complaint: Vaginal Pain Stated Complaint: ABDOMINAL PAIN Notes: 29-year-old female with past medical history of HSV, chronic UTI, MRSA, chronic yeast infection presenting with continued pain with urination, left-sided flank pain and white discharge. She states she also has a history of HSV and MRSA. States that she when she was seen back in August she took antibiotics and her symptoms of her pain with urination and the yeast cleared but shortly after discontinuing the medication her pain with urination and vaginal discharge returned. States she has had occasional boils develop. States that this is not abnormal for her. She denies having intercourse due to the pain. She does not have health insurance at this time. She denies any fevers, chills, shortness of breath chest pain. She states she is occasionally nauseous but that is mostly in the morning and it resolves on its own. Is not currently nauseous. Also notes left sided flank pain. TRAVEL OUTSIDE OF THE [place] IN LAST 30 DAYS: No - Related Data Allergies/Adverse Reactions: No Known Allergies Allergy (Verified 09/03/17 16:48) Past Medical History - Social History Smoking Status: Never Smoker Frequency of alcohol use: None Drug Abuse: None Family History: Reviewed & Not Pertinent - Past Medical History Cardiac Medical History: Denies: Hx Hypertension Pulmonary Medical History: Denies: Hx Asthma, Hx Tuberculosis Neurological Medical History: Denies: Hx Seizures Endocrine Medical History: Reports: Hx Diabetes Mellitus Type 2 Renal/ Medical History: Reports: Hx Pelvic Inflammatory Disease - 16 years old. Denies: Hx Kidney Stones, Hx Peritoneal Dialysis GI Medical History: Reports: Hx Gastroesophageal Reflux Disease - WITH . Denies: Hx Hiatal Hernia, Hx Ulcer Musculoskeletal Medical History: Reports Hx Musculoskeletal Trauma Psychiatric Medical History: Denies: Hx Bipolar Disorder, Hx Depression, Hx Schizophrenia Infectious Medical History: Denies: Hx HIV Past Surgical History: Reports: Hx Section, Hx Cholecystectomy, Hx Tubal Ligation - Immunizations Hx Diphtheria, Pertussis, Tetanus Vaccination: No Review of Systems - Review of Systems Constitutional: No symptoms reported EENT: No symptoms reported Cardiovascular: No symptoms reported Respiratory: No symptoms reported Gastrointestinal: No symptoms reported Genitourinary: See HPI Female Genitourinary: See HPI Musculoskeletal: See HPI Skin: No symptoms reported Hematologic/Lymphatic: No symptoms reported Neurological/Psychological: No symptoms reported Physical Exam - Vital signs Vitals: Temp Pulse Resp BP Pulse Ox 98.7 F 97 16 136/83 H 99 11/04/19 08:10 11/04/19 08:10 11/04/19 08:10 11/04/19 08:10 11/04/19 08:10 Interpretation: Normal - Notes Notes: Chaperoned by Charlene Sepulveda RN Adult General: GENERAL: Alert, interacts well. No acute distress HEAD: Normocephalic, atraumatic EYES: Pupils equal, round and reactive to light. Extraocular movements intact. ENT: Airway patent. Nares patent. NECK: Full range of motion. Supple. Trachea midline. LUNGS: Clear to auscultation bilaterally, no wheezes, rales, or rhonchi. No respiratory distress. Nontender chest wall. HEART: Regular rate and rhythm. No murmurs, rubs or gallops. ABDOMEN: Soft, suprapubic tenderness. Nondistended. (-) Bearden sign. Bowel sounds present in all 4 quadrants. No rebound, guarding or masses. GENITOURINARY: Swollen vulva with white chunky discharge, (-) chandeliers sign, no open sores or lesions EXTREMITIES: Moves all 4 extremities spontaneously. BACK: (+) CVA tenderness left side. No cervical, thoracic, lumbar midline tenderness. No saddle anesthesia, normal distal neurovascular exam. Moves all extremities with full range of motion. NEUROLOGICAL: Alert and oriented x3. Normal speech. Strength 5/ 5 in all extremities. PSYCH: Normal affect, normal mood. SKIN: Warm, dry, normal turgor. No rashes or lesions noted. Course - Re-evaluation Re-evalutation: 11/04/19 09:[address] scan shows hepatomegaly and no hydronephrosis or stones. Her UTI is positive for leukocyte esterase. Her wet prep is positive for bv and yeast. Her blood sugars are also elevated at this time. I had a lengthy conversation with the patient in regards to the importance of establishing care with a primary care provider for her reoccurring yeast infections and diabetes as I suspect the diabetes is worsening her yeast infec tions. I also discussed she will need follow up with a primary care for her hepatomegaly. I will go ahead and order her a dose of diflucan in the er today and give her 2 additional doses as well as a topical cream to help alleviate her inflammation. I will also treat for BV. I also discussed with the patient her urinalysis results. She states it doesn't feel like a UTI as the pain is all external with urination. The urinalysis results may be due to her yeast/bv/inflammation. I will not prescribe antibiotics at this time, but will go ahead and culture her urine. I informed the patient that the culture results should return in approximately 3 days and if they are positive we can treat her then. I informed her that if she is not notifed by the emergency department that she should call to receive the results. Patient is agreeable to the plan. I will also order her metformin in the interim while she establishes care with a primary care provider. I discussed return precautions to include worsening symptoms or the development of new symptoms. Patient acknowledges and verbalizes understanding of instructions and plan. All questions answered. - Vital Signs Vital signs: Temp Pulse Resp BP Pulse Ox 98.3 F 86 17 138/90 H 98 11/04/19 13:01 11/04/19 13:01 11/04/19 13:01 11/04/19 13:01 11/04/19 13:01 - Laboratory Result Diagrams: 11/04/19 10:15 11/04/19 10:15 Laboratory results interpreted by me: 11/04/19 11/04/19 09:35 10:15 Sodium 132.1 L Glucose 329 H Urine Protein 30 H Urine Glucose (UA) >=500 H Urine Ketones TRACE H Urine Blood SMALL H Ur Leukocyte Esterase LARGE H Urine Ascorbic Acid 40 H Discharge - Discharge Clinical Impression: Bacterial vaginosis, Yeast infection involving the vagina and surrounding area Diabetes mellitus Qualifiers: Diabetes mellitus type: type 2 Diabetes mellitus terminal make up operator insulin use: unspecified terminal make up operator insulin use status Diabetes mellitus complication status: without complication Qualified Code(s): E11.9 - Type 2 diabetes mellitus without complications Condition: Stable Disposition: HOME, SELF-CARE Instructions: Diabetes ([facility]), Vaginal Yeast Infection ([facility]), Vaginosis, Bacterial ([facility]) Additional Instructions: You are being treated for bacterial vaginosis. Please take medication as prescribed. You also being treated for a yeast infection. You have been given a dose of Diflucan in the emergency department today. Take additional doses as prescribed. Please establish care with your primary care provider to better control your blood sugars. Your blood sugars have also been elevated in the emergency department. I will start you on metformin today. Please follow-up with your primary care provider for better control of your diabetes. As discussed we also cultured your urinalysis. I am pending those results before we start treatment as I believe your symptoms are more related to your yeast and bacterial vaginosis. These results will take approximately 3 days to come back. If you do not hear back you may call the emergency department for the results. Please return to the emergency department for worsening symptoms or development of new symptoms. Prescriptions: Fluconazole [Diflucan] 150 mg PO ASDIR #2 tablet Metronidazole [Flagyl 500 mg Tablet] 500 mg PO BID 7 Days #14 tablet Metformin HCl 500 mg PO BID 7 Days #14 tablet Nystatin/Triamcin [Mycolog-II Ointment 15 gm] 1 applic TP BID 5 Days #1 tube
[2019-11-04 10:15] LABS: AMORPHOUS SEDIMENT,URINE TRACE /HPF; APPEARANCE,URINE CLOUDY; BILIRUBIN,URINE NEGATIVE (NEGATIVE); COLOR,URINE YELLOW; GLUCOSE, URINE >=500 mg/dL (NEGATIVE); KETONES,URINE TRACE mg/dL (NEGATIVE); LEUKOCYTE ESTERASE,URINE LARGE (NEGATIVE); NITRITE,URINE NEGATIVE (NEGATIVE); PROTEIN,URINE 30 mg/dL (NEGATIVE); URINE SPECIFIC GRAVITY 1.027; UROBILINOGEN,URINE NEGATIVE mg/dL (<2.0)
[2019-11-04 10:38] LABS: ABSOLUTE BASOPHILS # (AUTO) 0.1 10^3/uL (0.0-0.2); ABSOLUTE EOSINOPHILS # (AUTO) 0.1 10^3/uL (0.0-0.6); ABSOLUTE LYMPHOCYTES (AUTO) 2.9 10^3/uL (0.5-4.7); ABSOLUTE MONOCYTES (AUTO) 0.6 10^3/uL (0.1-1.4); ABSOLUTE NEUT (AUTO) 3.4 10^3/uL (1.7-8.2); BASOPHILS % (AUTO) 0.8 % (0-2); HEMATOCRIT 39.1 % (36.0-47.0); HEMOGLOBIN 13.2 g/dL (12.0-15.5); LYMPHOCYTES % (AUTO) 40.7 % (13-45); MEAN CORPUSCULAR HEMOGLOBIN 29.4 pg (27.0-33.4); MEAN CORPUSCULAR HGB CONC 33.7 g/dL (32.0-36.0); MEAN CORPUSCULAR VOLUME 87 fl (80-97); MONOCYTES % (AUTO) 8.4 % (3-13); PLATELET COUNT 344 10^3/uL (150-450); RED BLOOD COUNT 4.48 10^6/uL (3.72-5.28); RED CELL DISTRIBUTION WIDTH 12.9 % (11.5-14.0); SEGMENTED NEUTROPHILS % (AUTO) 48.1 % (42-78); TOTAL CELLS COUNTED % (AUTO) 100 %; WHITE BLOOD COUNT 7.2 10^3/uL (4.0-10.5)
[2019-11-04 10:55] LABS: ALBUMIN 4.1 g/dL (3.5-5.0); ALKALINE PHOSPHATASE 116 U/L (38-126); ANION GAP 9 (5-19); ASPARTATE AMINO TRANSFERASE 22 U/L (14-36); BILIRUBIN,TOTAL 0.4 mg/dL (0.2-1.3); BLOOD UREA NITROGEN 8 mg/dL (7-20); CALCIUM 9.7 mg/dL (8.4-10.2); CARBON DIOXIDE 22 mmol/L (22-30); CHLORIDE 101 mmol/L (98-107); GLUCOSE 329 mg/dL (75-110); POTASSIUM 4.6 mmol/L (3.6-5.0)
--- NOTE | 2019-11-04 11:13 | RADIOLOGY REPORT (SQ) ---
EXAM DESCRIPTION: CT ABD/PELVIS NO ORAL OR IV IMAGES COMPLETED DATE/TIME: 11/04/2019 10:54 am REASON FOR STUDY: right flank pain COMPARISON: None. TECHNIQUE: CT scan of the abdomen and pelvis performed without intravenous or oral contrast. Images reviewed with lung, soft tissue, and bone windows. Reconstructed coronal and sagittal MPR images revi ewed. All images stored on PACS. All CT scanners at this facility use dose modulation, iterative reconstruction, and/or weight based d osing when appropriate to reduce radiation dose to as low as reasonably achievable (ALARA). [facility]: Dose Right [facility]: CareDose [facility]: Dose Right [facility]: Teradose 4D [facility]: Smart IG [employer] RADIATION DOSE: CT Rad equipment meets quality standard of care and radiation dose reduction techniq ues were employed. CTDIvol: 19.2 mGy. DLP: 1017 mGy-cm.mGy. LIMITATIONS: None. FINDINGS: LOWER CHEST: No significant findings. No nodules or infiltrates. NON-CONTRASTED LIVER, SPLEEN, ADRENALS: Evaluation limited by lack of IV contrast. Hepatomegaly with diffuse fatty infiltration. No identified significant masses. PANCREAS: No masses. No peripancreatic inflammatory changes. GALLBLADDER: Surgically absent. RIGHT KIDNEY AND URETER: No suspicious masses. Assessment limited by lack of IV contrast. No signif icant calcifications. No hydronephrosis or hydroureter. LEFT KIDNEY AND URETER: No suspicious masses. Assessment limited by lack of IV contrast. No signifi cant calcifications. No hydronephrosis or hydroureter. AORTA AND RETROPERITONEUM: No aneurysm. No retroperitoneal masses or adenopathy. BOWEL AND PERITONEAL CAVITY: No obvious masses or inflammatory changes. No free fluid. APPENDIX: Normal. PELVIS, BLADDER, AND ABDOMINAL WALL:No abnormal masses. No free fluid. Bladder normal. BONES: No significant findings. Fusion of the L3 and L4 vertebrae. OTHER: No other significant finding. IMPRESSION: HEPATOMEGALY WITH DIFFUSE FATTY INFILTRATION OF THE LIVER. OTHERWISE NO SIGNIFICANT OR ACUTE PROCESS IN THE ABDOMEN OR PELVIS. COMMENT: Quality ID # [id number]: Final reports with documentation of one or more dose reduction techniques (e.g., Automated exposure control, adjustment of the mA and/or kV according to patient size, use of iterative reconstruction technique) TECHNICAL DOCUMENTATION: JOB ID: [id number] 2010 [employer]- All Rights Reserved Reading location - IP/workstation name: [email or web address]
[2019-11-04] MEDS ORDERED: NORMAL SALINE 1000 ML 1,000 ML IV ONE (11:17)
[2019-11-04 11:19] LABS: BACTERIA (WET MOUNT) 3+ BACTERIA SEEN; EPITHELIALS (WET MOUNT) 4+ EPITHELIALS SEEN; T.VAGINALIS (WET MOUNT) NO TRICHOMONAS SEEN; WBCS (WET MOUNT) FEW WBCS SEEN; YEAST (WET MOUNT) BUDDING YEAST SEEN
[2019-11-04] MEDS ORDERED: FLUCONAZOLE 100 MG TABLET PO ONE (12:15)
[2019-11-04 13:02] LABS: CHLAM PCR NOT DETECTED (NOT DETECT)
[2019-11-04 13:03] VITALS: BP 138/90
== END 2019-11-04 13:01 | disposition home or self-care (01) ==
LOC: ER 07:58
DX: B37.3 Candidiasis of vulva and vagina (principal); N76.0 Acute vaginitis; B96.89 Other specified bacterial agents as the cause of diseases classified elsewhere; R10.9 Unspecified abdominal pain; E11.65 Type 2 diabetes mellitus with hyperglycemia; K76.0 Fatty (change of) liver, not elsewhere classified; Z87.440 Personal history of urinary (tract) infections
CPT/HCPCS: 36415; 74176; 80053; 81001; 81025; 83690; 85025; 87086; 87088; 87186; 87210; 87491; 87591; 99284